=== PATIENT | female | born 1990 | race African-American/Black ===

== ENCOUNTER 2016-10-18 08:01 | Emergency (ER) | payer OTHER ==
[2016-10-18 08:06] VITALS: BP 106/73; PULSE 87; TEMP 98.1; BMI 22.3
--- NOTE | 2016-10-18 08:46 | PDOC ---
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 Patient works at [employer]. Patient complaining of left lateral shoulder pain, there is no swelling, no deformity, no edema. Extremity Pain Location - Extremity Pain Location Extremity Pain Locations: left: other (shoulder) Past History - Past Medical History Allergies/Adverse Reactions: Allergies Allergy/AdvReac Type Severity Reaction Status Date / Time No Known Allergies Allergy Verified 10/18/16 08:06 Home Medications: Ambulatory Orders Albuterol Sulfate Inhaler - [Ventolin HFA Inhaler -] 1 - 2 inh IH QID PRN Naproxen [Naprosyn -] 500 mg PO BID #14 tablet 10/18/16 Asthma: Yes - Psycho/Social/Smoking Cessation Hx Anxiety: No Suicidal Ideation: No Smoking Status: No Smoking History: Never smoked Number of Cigarettes Smoked Daily: 0 Information on smoking cessation initiated: No Hx Alcohol Use: No Drug/Substance Use Hx: No Substance Use Type: None Review of Systems - Review of Systems Constitutional: No: Symptoms Reported Respiratory: No: Symptoms reported Cardiac (ROS): No: Symptoms Reported Musculoskeletal: Yes: Joint Pain, Muscle Pain. No: Joint Swelling, Muscle Weakness, Neck Pain, Joint Stiffness Integumentary: No: Symptoms Reported, Bruising, Erythema Neurological: No: Symptoms reported, Numbness, Paresthesia, Tingling, Tremors, Weakness All Other Systems: Reviewed and Negative *Physical Exam - Vital Signs Last Vital Signs Temp Pulse Resp BP Pulse Ox 98.1 F 87 17 106/73 100 10/18/16 08:04 10/18/16 08:04 10/18/16 08:04 10/18/16 08:04 10/18/16 08:04 - Physical Exam General Appearance: Yes: Appropriately Dressed. No: Apparent Distress Neck: negative: Tender lateral, Tender midline Respiratory/Chest: positive: Lungs Clear, Normal Breath Sounds Cardiovascular: positive: Regular Rhythm, Regular Rate Musculoskeletal: positive: Muscle Spasm. negative: Decreased Range of Motion ( Pain with ROM to the left shoulder, pain with abduction) Extremity: positive: Normal Capillary Refill, Normal Inspection. negative: Normal Range of Motion, Swelling, Erythema, Inflammation Integumentary: positive: Normal Color, Dry. negative: Erythema, Swelling, Ecchymosis, Bruising Neurologic: positive: Alert, Normal Mood/Affect, Normal Response, Motor Strength 5/5 ED Treatment Course - RADIOLOGY Radiology Studies Ordered: Category Date Time Status SHOULDER-LEFT [RAD] Stat Radiology 10/18/16 08:39 Ordered Medical Decision Making - Medical Decision Making 10/18/16 08:46 A/P : Patient with left shoulder pain. Patient with ROM with associated pain. Pain with abduction. There is no deformity, no evidence of dislocation. Most likely muscle strain versus rotator cuff injury. Urine sent, will send for x-ray. 10/18/16 09:36 X-rays negative for acute pathology, arm sling placed on patient to be discharged on anti-inflammatories, injury to rotator cuff versus tendinitis, if pain persists in one week should follow-up with orthopedics. I discussed the physical exam findings, ancillary test results and final diagnoses with the patient. I answered all of the patient's questions. The patient was satisfied with the care received and felt comfortable with the discharge plan and treatment plan. The patient will call to arrange follow-up and will return to the Emergency Department with any new, persistent or worsening symptoms. *DC/Admit/Observation/Transfer Diagnosis at time of Disposition: Shoulder pain Qualifiers: Chronicity: acute Laterality: left Qualified Code(s): M25.512 - Pain in left shoulder - Discharge Dispostion Disposition: HOME Condition at time of disposition: Good Admit: No - Prescriptions Prescriptions: Naproxen [Naprosyn -] 500 mg PO BID #14 tablet - Referrals Referrals: Gabby Grover MD [Primary Care Provider] - - Patient Instructions Printed Discharge Instructions: DI for Shoulder Pain Additional Instructions: 1. Please return to the emergency department with any redness, swelling, increased pain, or any other concerns. 2. Keep arm sling on to rest shoulder. 3. Please follow up in the office of Dr. King within a week if pain persists. 4. No weightbearing 5. Ice and elevate when at rest. 6. Naprosyn for pain - Post Discharge Activity Work/School Note: Back to Work
[2016-10-18] MEDS ORDERED: IBUPROFEN 600 MG TABLET (FP) PO ONE ×2 (08:51→08:53)
== END 2016-10-18 09:47 | disposition home or self-care (01) ==
LOC: JERFT 08:01
DX: M25.512 Pain in left shoulder (principal); J45.909 Unspecified asthma, uncomplicated
CPT/HCPCS: 73030-TC-LT; 84703; 99281-25

== ENCOUNTER 2016-11-07 03:38 | Emergency (ER) | payer OTHER ==
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
[2016-11-07 04:42] VITALS: BP 115/73; PULSE 101; TEMP 98.3; BMI 23.8
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
[2016-11-07] MEDS ORDERED: FLUORESCEIN NA 1 EA STRIP OD ONE (06:21)
[2016-11-07] MEDS ORDERED: FLUORESCEIN NA 1 EA STRIP ONE (06:22)
[2016-11-07] MEDS ORDERED: TETRACAINE 0.5% HCL 0.6ML DROPPER.BOTTLE OD ONE (06:28)
[2016-11-07] MEDS ORDERED: TETRACAINE 0.5% OPHTH SOLN 2 ML BOTTLE ONE (06:40)
[2016-11-07] MEDS ORDERED: ERYTHROMYCIN 0.5% OPHTHALMIC OINTMENT 3.5 GM TUBE OD ONE (06:50)
[2016-11-07] MEDS ORDERED: ERYTHROMYCIN 0.5% OPHTHALMIC OINTMENT 3.5 GM TUBE ONE (06:56)
== END 2016-11-07 07:05 | disposition home or self-care (01) ==
LOC: JER 03:38
DX: S05.00XA Injury of conjunctiva and corneal abrasion without foreign body, unspecified eye, initial encounter (principal); Y04.8XXA Assault by other bodily force, initial encounter; Y93.89 Activity, other specified; Y92.89 Other specified places as the place of occurrence of the external cause; Y99.8 Other external cause status; Y07.9 Unspecified perpetrator of maltreatment and neglect
CPT/HCPCS: 70480-TC; 84703; 99281-25; 99282-25

== ENCOUNTER 2019-11-27 12:47 | Emergency (ER) | payer OTHER ==
--- NOTE | 2019-11-27 13:05 | PDOC ---
Rapid Medical Evaluation Time Seen by Provider: 11/27/19 13:04 Medical Evaluation: Allergies Allergy/AdvReac Type Severity Reaction Status Date / Time No Known Allergies Allergy Verified 05/19/17 07:22 11/27/19 13:04 I performed a brief in-person evaluation of this patient. R ear pain and ringing, sensation of popping since flying Monday from [place]. No drainage. Pertinent physical exam findings: hearing grossly normal, speaking in full sentences I have ordered the following: none Patient to proceed to ED for further evaluation. Discharge Disposition - Diagnosis Right ear pain - Referrals - Patient Instructions - Post Discharge Activity
[2019-11-27 13:22] VITALS: BP 121/66; PULSE 74; TEMP 98; BMI 30.2
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
--- NOTE | 2019-11-27 13:46 | PDOC ---
History of Present Illness - General Chief Complaint: Ear Problem Stated Complaint: RT EAR PAIN Time Seen by Provider: 11/27/19 13:04 - History of Present Illness Initial Comments: 11/27/19 13:43 29-year-old female denies comorbidities assures me there is no chance of presents for right ear pain x2 days after coming off a plane from [facility]. Since her flight landed she is had right ear congestion Past History - Medical History Allergies/Adverse Reactions: Allergies Allergy/AdvReac Type Severity Reaction Status Date / Time No Known Allergies Allergy Verified 11/27/19 13:22 Home Medications: Ambulatory Orders Albuterol Sulfate Inhaler - [Ventolin HFA Inhaler -] 1 - 2 inh IH QID PRN 08/28/11 Mag Hydrox/Al Hydrox/Simeth [Mylanta Suspension -] 30 ml PO Q6H PRN #1 bottle 05/19/17 Budesonide [Rhinocort Allergy] 1 spray NS ONCE #1 spray.pump 11/27/19 Cetirizine HCl/Pseudoephedrine [Zyrtec-D Tablet] 1 each PO DAILY #30 tab.er.12h 11/27/19 Asthma: Yes COPD: No DVT: No - Reproductive History Is Patient Now?: No - Immunization History Immunization Up to Date: Yes - Psycho-Social/Smoking History Smoking Status: No Smoking History: Never smoked Have you smoked in the past 12 months: No Number of Cigarettes Smoked Daily: 0 Information on smoking cessation initiated: No - Substance Abuse Hx (Audit-C & DAST Scrn) How often the patient has a drink containing alcohol: Never Score: In Men: 4 or > Positive; In Women: 3 or > Positive: 0 Screen Result (Pos requires Nsg. Audit-10AR): Negative In the last yr the pt used illegal drug/Rx for NonMed reason: No Score: Yes response is considered Positive: 0 Screen Result (Positive result requires Nsg. DAST-10): Negative Review of Systems - Review of Systems Constitutional: No: Chills, Fever, Night Sweats HEENTM: Yes: Ear Pain Respiratory: No: Cough *Physical Exam - Vital Signs Last Vital Signs Temp Pulse Resp BP Pulse Ox 98.0 F 74 16 121/66 100 11/27/19 13:05 11/27/19 13:05 11/27/19 13:05 11/27/19 13:05 11/27/19 13:05 - Physical Exam 11/27/19 13:44 GENERAL: The patient is awake, alert, and fully oriented, in no acute distress. HEAD: Normal with no signs of trauma. EYES: sclera anicteric, conjunctiva clear. ENT: Left ear canal and tympanic membrane are normal right ear canal and tympanic membrane are normal tympanic membrane is slightly bulging NECK: Normal range of motion LUNGS: No respiratory distress NEUROLOGICAL: Cranial nerves II through XII grossly intact. PSYCH: Normal mood, normal affect. SKIN: Warm, Dry, normal turgor, no rashes or lesions noted. Medical Decision Making - Medical Decision Making 11/27/19 13:45 Will give decongestion and corticosteroid nasal spray have patient follow-up with ENT I have reviewed the pathophysiology with the patient. They are in agreement with the treatment plan all questions were answered to their satisfaction. Understanding for follow-up without fail was also conveyed to the patient. Again they are in agreement. Again the patient assures me there is no chance of . Discharge - Discharge Information Problems reviewed: Yes Clinical Impression/Diagnosis: Right ear pain Condition: Stable Disposition: HOME - Admission No - Additional Discharge Information Prescriptions: Budesonide [Rhinocort Allergy] 1 spray NS ONCE #1 spray.pump Cetirizine HCl/Pseudoephedrine [Zyrtec-D Tablet] 1 each PO DAILY #30 tab.er.12h - Follow up/Referral Referrals: Omayra Bhandari [Primary Care Provider] - Leonid Espinoza MD [Staff Physician] - - Patient Discharge Instructions Additional Instructions: Return to the emergency room for worsening symptoms. Please take the medication as directed. Without fail follow-up with ear nose and throat doctor in 1 to 2 days for further evaluation and treatment options. - Post Discharge Activity
== END 2019-11-27 13:48 | disposition home or self-care (01) ==
LOC: JER 12:47 → JERFT 12:47
DX: H92.01 Otalgia, right ear (principal)
CPT/HCPCS: 99283-25

== ENCOUNTER 2023-05-25 04:33 | Emergency (ER) | payer OTHER ==
[2023-05-25 04:38] VITALS: BP 143/90; PULSE 128; RESP 20; TEMP 97.8; BMI 30.2
[2023-05-25] MEDS ORDERED: ACETAMINOPHEN INJECTION 100 ML IVPB ONE (05:02)
[2023-05-25] MEDS ORDERED: DIPHTH,PERTUSS(ACELL),TET 0.5 ML DISP.SYRIN IM ONE (05:02)
[2023-05-25] MEDS: ACETAMINOPHEN 1000 MG/100 ML BAG IVPB ONE (05:16)
[2023-05-25] MEDS: DIPHTH,PERTUSS(ACELL),TET 0.5 ML DISP.SYRIN IM ONE (05:17)
== END 2023-05-25 06:18 | disposition short-term general hospital (02) ==
LOC: JER 04:33
PROC: 3E033NZ Introduction of Analgesics, Hypnotics, Sedatives into Peripheral Vein, Percutaneous Approach (ICD-10-PCS; principal; 2023-05-25)
PROC: 3E0234Z Introduction of Serum, Toxoid and Vaccine into Muscle, Percutaneous Approach (ICD-10-PCS; 2023-05-25)
DX: S01.81XA Laceration without foreign body of other part of head, initial encounter (principal); X99.1XXA Assault by knife, initial encounter; Z20.822 Contact with and (suspected) exposure to COVID-19
CPT/HCPCS: 0241U-QW; 90471; 90715; 96374; 99285-25; J0131